=== PATIENT | female | born 1980 | race Caucasian/White ===

== ENCOUNTER 2022-08-20 17:54 | Emergency (ER) | payer OTHER ==
[~2022-08-20] VITALS: Ht 162.6 cm; Wt 75.0 kg
[2022-08-20] MEDS ORDERED: inhaler IH (18:02)
[2022-08-20 18:05] VITALS: BP 117/79
[2022-08-20] MEDS ORDERED: PERTUSS(ACELL),DIPH,TET VAC/PF 0.5 ML SYRINGE IM. ONE ×2 (20:15→22:30)
[2022-08-20] MEDS ORDERED: LIDOCAINE 1% 10 ML VIAL SQ ONE (20:15)
[2022-08-20] MEDS ORDERED: BACITRACIN 0.9 GM PACKET OINTMENT TP ONE (20:15)
[2022-08-20] MEDS ORDERED: IBUPROFEN 600 MG TABLET PO ONE (20:15)
[2022-08-20] MEDS ORDERED: CEPHALEXIN MONOHYDRATE 500 MG CAPSULE PO ONE (21:30)
[2022-08-20] MEDS ORDERED: IBUP-1554 PO ×2 (22:10→22:27)
[2022-08-20] MEDS ORDERED: ACET-2080 PO ×2 (22:10→22:27)
[2022-08-20] MEDS ORDERED: AMOX1TAB16 PO ×2 (22:10→22:27)
== END 2022-08-20 22:57 | disposition home or self-care (01) ==
LOC: EMS 17:57
DX: S51.812A Laceration without foreign body of left forearm, initial encounter (principal); J45.909 Unspecified asthma, uncomplicated; W54.0XXA Bitten by dog, initial encounter; Y93.89 Activity, other specified; Y92.89 Other specified places as the place of occurrence of the external cause; Y99.8 Other external cause status
CPT/HCPCS: 99283; 73090; 90715; 90471; 12002; J3490